=== PATIENT | female | born 1990 | race Asian ===

== ENCOUNTER 2023-08-30 07:08 | Day surgery (SDC) | payer SELFPAY ==
[~2023-08-30] VITALS: Ht 160 cm; Wt 122.5 kg
[2023-08-30] MEDS ORDERED: fentaNYL citrate 0.05 MG/ML VIAL ONE (08:03)
[2023-08-30] MEDS ORDERED: MIDAZOLAM 5 MG/5 ML VIAL ONE (08:03)
[2023-08-30] MEDS: fentaNYL citrate 0.05 MG/ML VIAL IVP ONE (08:15)
[2023-08-30] MEDS: MIDAZOLAM 2 MG/2 ML VIAL IV ONE (08:16)
[2023-08-30] MEDS: LIDOCAINE 2% 100 MG/5 ML UJET TP ONE (08:24)
== END 2023-08-30 09:42 | disposition home or self-care (01) ==
LOC: MDS 07:08 → MMU 07:15 → MDS 09:42
PROVIDERS: ATTEND Internal Medicine Gastroenterology
DX: K62.5 Hemorrhage of anus and rectum (principal); K57.30 Diverticulosis of large intestine without perforation or abscess without bleeding; K63.5 Polyp of colon; E78.00 Pure hypercholesterolemia, unspecified; F32.A Depression, unspecified; E03.9 Hypothyroidism, unspecified; F17.210 Nicotine dependence, cigarettes, uncomplicated
CPT/HCPCS: 36415; 43239; 45380; 86677; J2250; J3010